=== PATIENT | female | born 1985 | race Caucasian/White ===

== ENCOUNTER → 2016-12-11 | Outpatient (CLI) | payer OTHER | LOC: BMCIMAGING 14:21 | PROVIDERS: ATTEND Registered Nurse General Practice | DX: M79.661 Pain in right lower leg (principal) ==

== ENCOUNTER → 2018-01-21 | Outpatient (CLI) | payer OTHER | LOC: FIMAGING 07:18 | PROVIDERS: ATTEND Physician Assistant Medical | DX: R22.31 Localized swelling, mass and lump, right upper limb (principal) ==